=== PATIENT | female | born 1990 | race American Indian/Alaskan Native ===

== ENCOUNTER 2017-12-05 09:46 | Emergency (ER) | payer SELFPAY ==
[2017-12-05 09:55] VITALS: BP 146/98
[2017-12-05 11:48] LABS: Bacteria,Urine 1+ /HPF (Negative); Bilirubin,Urine NEG (Negative); Blood,Urine LG (Negative); Nitrite,Urine NEG (Negative); Urobilinogen,Urine < 2.0 mg/dL (<2.0)
[2017-12-05 11:52] LABS: Color,Urine Red (Yellow)
[2017-12-05 11:59] LABS: HCG Qualitative,Urine Negative (Negative)
--- NOTE | 2017-12-05 12:32 | Emergency Department Report ---
ED Female HPI - General Chief complaint: Urogenital-Female Stated complaint: STD CHECK/ABDOMINAL PAIN Time Seen by Provider: 12/05/17 12:29 Source: patient Mode of arrival: Ambulatory Limitations: No Limitations - History of Present Illness Initial comments: Patient is a 27-year-old female who is presenting with some lower abdominal crampiness. Patient states that she just moved here and her boyfriend started "acting funny". When she stated that her menses was low more painful than normal he admitted that he has Trichomonas and possibly herpes and she has been exposed. Patient has no vaginal discharge and dysuria at this time. Patient states the lower abdominal discomfort is crampy 6 out of 10 and is consistent with her menses - Related Data Allergies Allergy/AdvReac Type Severity Reaction Status Date / Time No Known Allergies Allergy Unverified 12/05/17 09:55 ED Review of Systems ROS: Stated complaint: STD CHECK/ABDOMINAL PAIN Other details as noted in HPI Comment: All other systems reviewed and negative ED Past Medical Hx - Past Medical History Previous Medical History?: Yes Hx Hypertension: Yes Additional medical history: 1 Vaginal dleivery - Surgical History Past Surgical History?: Yes Additional Surgical History: x 2 - Social History Smoking Status: Former Smoker ED Physical Exam - General Limitations: No Limitations General appearance: alert, in no apparent distress - Head Head exam: Present: atraumatic, normocephalic - Eye Eye exam: Present: normal appearance - ENT ENT exam: Present: mucous membranes moist - Neck Neck exam: Present: normal inspection - Respiratory Respiratory exam: Present: normal lung sounds bilaterally. Absent: respiratory distress - Cardiovascular Cardiovascular Exam: Present: regular rate, normal rhythm. Absent: systolic murmur, diastolic murmur, rubs, gallop - GI/Abdominal GI/Abdominal exam: Present: soft, normal bowel sounds - Extremities Exam Extremities exam: Present: normal inspection - Back Exam Back exam: Present: normal inspection - Neurological Exam Neurological exam: Present: alert, oriented X3 - Psychiatric Psychiatric exam: Present: normal affect, normal mood - Skin Skin exam: Present: warm, dry, intact, normal color. Absent: rash ED Course Vital Signs 12/05/17 09:50 Temperature 98.6 F Pulse Rate 84 Respiratory 20 Rate Blood Pressure 146/98 O2 Sat by Pulse 100 Oximetry ED Medical Decision Making - Medical Decision Making Patient was given counseling on ST eyes and will be treated for gonorrhea chlamydia and trichomonas empirically Critical care attestation.: If time is entered above; I have spent that time in minutes in the direct care of this critically ill patient, excluding procedure time. ED Disposition Clinical Impression: STD exposure Disposition: DC-01 TO HOME OR SELFCARE Is pt being admited?: No Does the pt Need Aspirin: No Condition: Stable Instructions: Sexually Transmitted Diseases (ED) Referrals: [facility] [Outside] - 3-5 Days
[2017-12-05] MEDS ORDERED: ROCEPHIN IM ONE (12:33)
[2017-12-05] MEDS ORDERED: ZITHROMAX PO ONE (12:33)
[2017-12-05] MEDS ORDERED: XYLOCAINE 1% MPF 5 mL INFILTRATI ONE (12:33)
[2017-12-05] MEDS ORDERED: FLAGYL PO ONE (12:33)
== END 2017-12-05 12:44 | disposition home or self-care (01) ==
LOC: ED 09:46
DX: R10.30 Lower abdominal pain, unspecified (principal); Z20.2 Contact with and (suspected) exposure to infections with a predominantly sexual mode of transmission; I10 Essential (primary) hypertension; Z87.891 Personal history of nicotine dependence
CPT/HCPCS: 81001; 81025; 96372; 99283; J0696

== ENCOUNTER 2018-06-09 10:30 | Emergency (ER) | payer MEDICAID ==
--- NOTE | 2018-06-09 12:11 | Emergency Department Report ---
Blank Doc - Documentation Documentation: 27 year old female with a past medical history of -induced hypertension presents to the hospital currently possibly 2 months with vaginal bleeding onset this a.m. This is patient's fourth and she has 3 living children without any history of miscarriages or abortions. She went to a clinic one month ago and had a confirmed test with an ultrasound showing an IUP. She did have sexual intercourse last night. This a.m. she woke up with painless vaginal bleeding and has used one pad since onset of symptoms. Patient also presents with elevated BP. She states that she has had elevated blood pressure throughout her previous pregnancies and her youngest child is 8. Patient has her first appointment with [facility] scheduled next week but she cannot recall the name of the group. [place]. Exam: Nasal congestion, patient states she has cold symptoms without fever Abdomen soft nontender Order repeat vital signs are confirmed hypertension. Patient mainly to be initiated on hypertensive medication if still elevated Labs and ultrasound ordered to confirm IUP and verify blood type Mid-level to follow
--- NOTE | 2018-06-09 12:42 | Emergency Department Report ---
ED Female HPI - General Chief complaint: Vaginal Bleeding Stated complaint: VAGINAL BLEEDING Time Seen by Provider: 06/09/18 12:02 Source: patient, family Mode of arrival: Ambulatory Limitations: No Limitations - History of Present Illness Initial comments: 27 year old female with a past medical history of -induced hypertension presents to the hospital currently possibly 2 months with vaginal bleeding onset this a.m. This is patient's fourth and she has 3 living children without any history of miscarriages or abortions. She went to a clinic one month ago and had a confirmed test with an ultrasound showing an IUP. She did have sexual intercourse last night. This a.m. she woke up with painless vaginal bleeding and has used one pad since onset of symptoms. Patient also presents with elevated BP. She states that she has had elevated blood pressure throughout her previous pregnancies and her youngest child is 8. Patient has her first appointment with [facility] scheduled next week but she cannot recall the name of the group. She recently [place] here [place]. Blood pressure is 166/98 at present. She denies any abdominal or back pain. Denies any urinary burning, frequency or urgency. Denies any headache, nausea or vomiting. Denies any fever or chills. Denies any chest pain or shortness of breath. Last menstrual period was 02/13/2018. Complaint: vaginal bleeding -: This morning Severity scale (0 -10): 0 Consistency: intermittent Worsens with: none Are you Now?: Yes (2 months) Last Menstrual Period: 02/13/18 EDC: 11/20/18 Associated Symptoms: vaginal bleeding, other (elevated blood pressure asymptomatic). denies: vaginal discharge, abdominal pain, nausea/vomiting, fever/chills, headaches, loss of appetite, dysuria, hematuria, rash, seizure, shortness of breath, syncope, weakness - Related Data Sexually active: Yes Allergies Allergy/AdvReac Type Severity Reaction Status Date / Time No Known Allergies Allergy Verified 06/09/18 10:52 ED Review of Systems ROS: Stated complaint: VAGINAL BLEEDING Other details as noted in HPI Constitutional: denies: chills, fever Eyes: denies: eye pain, eye discharge, vision change ENT: congestion (nasal congestion and runny nose). denies: ear pain, throat pain Respiratory: denies: cough, shortness of breath, SOB with exertion, SOB at rest , stridor, wheezing Cardiovascular: denies: chest pain, palpitations, dyspnea on exertion, edema, syncope, paroxysmal nocturnal dyspnea Gastrointestinal: denies: abdominal pain, nausea, vomiting, diarrhea, constipation, hematemesis, hematochezia Genitourinary: other (vaginal bleed and). denies: urgency, dysuria, frequency, hematuria, discharge Musculoskeletal: denies: back pain, joint swelling, arthralgia, myalgia Skin: denies: rash Neurological: denies: headache, weakness, numbness, confusion, abnormal gait, vertigo ED Past Medical Hx - Past Medical History Previous Medical History?: Yes Hx Hypertension: Yes ( HTN) Additional medical history: 1 Vaginal dleivery - Surgical History Past Surgical History?: Yes Additional Surgical History: x 2 - Family History Family history: hypertension - Social History Smoking Status: Never Smoker Substance Use Type: None ED Physical Exam - General Limitations: No Limitations General appearance: alert, in no apparent distress - Head Head exam: Present: atraumatic, normocephalic, normal inspection - Eye Eye exam: Present: normal appearance, PERRL, EOMI Pupils: Present: normal accommodation - ENT ENT exam: Present: normal exam, normal orophraynx, mucous membranes moist, TM's normal bilaterally, normal external ear exam - Neck Neck exam: Present: normal inspection, full ROM. Absent: tenderness, lymphadenopathy - Respiratory Respiratory exam: Present: normal lung sounds bilaterally. Absent: respiratory distress, chest wall tenderness - Cardiovascular Cardiovascular Exam: Present: regular rate, normal rhythm, normal heart sounds. Absent: systolic murmur, diastolic murmur - GI/Abdominal GI/Abdominal exam: Present: soft, normal bowel sounds. Absent: distended, tenderness, guarding, rebound, rigid, organomegaly, mass - Extremities Exam Extremities exam: Present: normal inspection, full ROM, normal capillary refill , other (No cce. + 2 pulses in all extremities, no neurovascular compromise). Absent: tenderness, pedal edema, joint swelling, calf tenderness - Back Exam Back exam: Present: normal inspection, full ROM, other (ambulates without any difficulties). Absent: tenderness, CVA tenderness (R), CVA tenderness (L), muscle spasm, paraspinal tenderness, vertebral tenderness, rash noted - Neurological Exam Neurological exam: Present: alert, oriented X3, normal gait - Psychiatric Psychiatric exam: Present: normal affect, normal mood - Skin Skin exam: Present: warm, dry, intact, normal color. Absent: rash ED Course Vital Signs 06/09/18 06/09/18 10:52 14:00 Temperature 98.5 F Pulse Rate 96 H 89 Respiratory 18 18 Rate Blood Pressure 166/98 Blood Pressure 123/72 [Right] O2 Sat by Pulse 100 100 Oximetry - Reevaluation(s) Reevaluation #1: 06/09/18 16:58 Patient is stable no distress. No vaginal bleeding while in the emergency room. Her blood pressure is stabilized. ED Medical Decision Making - Lab Data Result diagrams: 06/09/18 13:03 06/09/18 13:03 Lab Results 06/09/18 06/09/18 06/09/18 Range/Units 13:03 13:03 13:03 WBC 9.5 (4.5-11.0) K/mm3 RBC 4.32 (3.65-5.03) M/mm3 Hgb 12.4 (10.1-14.3) gm/dl Hct 35.4 (30.3-42.9) % MCV 82 (79-97) fl MCH 29 (28-32) pg MCHC 35 H (30-34) % RDW 13.7 (13.2-15.2) % Plt Count 337 (140-440) K/mm3 Lymph % (Auto) 8.2 L (13.4-35.0) % Knott % (Auto) 6.7 (0.0-7.3) % Eos % (Auto) 0.0 (0.0-4.3) % Baso % (Auto) 0.3 (0.0-1.8) % Lymph # 0.8 L (1.2-5.4) K/mm3 Knott # 0.6 (0.0-0.8) K/mm3 Eos # 0.0 (0.0-0.4) K/mm3 Baso # 0.0 (0.0-0.1) K/mm3 Seg Neutrophils % 84.8 H (40.0-70.0) % Seg Neutrophils # 8.1 H (1.8-7.7) K/mm3 Sodium 138 (137-145) mmol/L Potassium 3.5 L (3.6-5.0) mmol/L Chloride 103.9 (98-107) mmol/L Carbon Dioxide 21 L (22-30) mmol/L Anion Gap 17 mmol/L BUN 3 L (7-17) mg/dL Creatinine 0.5 L (0.7-1.2) mg/dL Estimated GFR > 60 ml/min BUN/Creatinine Ratio 6 % Glucose 74 (65-100) mg/dL Calcium 9.0 (8.4-10.2) mg/dL HCG, Quant 17129 H (0-4) mIU/mL Blood Type Antibody Screen 06/09/18 Range/Units 13:03 WBC (4.5-11.0) K/mm3 RBC (3.65-5.03) M/mm3 Hgb (10.1-14.3) gm/dl Hct (30.3-42.9) % MCV (79-97) fl MCH (28-32) pg MCHC (30-34) % RDW (13.2-15.2) % Plt Count (140-440) K/mm3 Lymph % (Auto) (13.4-35.0) % Knott % (Auto) (0.0-7.3) % Eos % (Auto) (0.0-4.3) % Baso % (Auto) (0.0-1.8) % Lymph # (1.2-5.4) K/mm3 Knott # (0.0-0.8) K/mm3 Eos # (0.0-0.4) K/mm3 Baso # (0.0-0.1) K/mm3 Seg Neutrophils % (40.0-70.0) % Seg Neutrophils # (1.8-7.7) K/mm3 Sodium (137-145) mmol/L Potassium (3.6-5.0) mmol/L Chloride (98-107) mmol/L Carbon Dioxide (22-30) mmol/L Anion Gap mmol/L BUN (7-17) mg/dL Creatinine (0.7-1.2) mg/dL Estimated GFR ml/min BUN/Creatinine Ratio % Glucose (65-100) mg/dL Calcium (8.4-10.2) mg/dL HCG, Quant (0-4) mIU/mL Blood Type B POSITIVE Antibody Screen Negative - Radiology Data Radiology results: report reviewed Findings [facility] [address] [place] [address] Ultrasound Report Signed Patient: ARMEN MOLINA MR#: [id number] : 1990 Acct:[id number] Age/Sex: 27 / F ADM Date: 06/09/18 Loc: ED Attending Dr: Ordering Physician: NENA HERRERA MD Date of Service: 06/09/18 Procedure(s): US OB <= 14 weeks fetus Accession Number(s): [id number] cc: NENA HERRERA MD FINAL REPORT PROCEDURE: US OB lt; = 14 WEEKS FETUS TECHNIQUE: Real-time transabdominal sonography of the uterus, placenta, amniotic fluid, adnexa, and fetus was performed with image documentation. Measurements were obtained to determine age/size. M-mode Doppler was used to document heartbeat. CPT 19652 HISTORY: vag bleeding, COMPARISON: No prior studies are available for comparison. FINDINGS: There is a single living intrauterine gestation visualized with a heart rate of 155 beats per minute. Shape of the gestational sac appears normal. Normal amount of amniotic fluid is visualized. Fetus currently too small to assess anatomy. No gross abnormality is seen. Biparietal diameter measurement 2.2 centimeter corresponds to an age of 13 weeks 5 days. Femur length 1.0 centimeter equals 12 weeks 6 days for average sonographic age of 13 weeks 2 days. [address] EDC 12/13/2018 plus or minus 1.5 weeks.. There is a subchorionic hypoechoic density suggesting a subchorionic hemorrhage measuring 3.3 x 1.0 x 1.3 centimeters. Uterus is otherwise unremarkable. Right ovary is visualized and shows no abnormality measuring 3.4 x 2.3 x 2.1 centimeters. Left ovary measures 3.9 x 3.6 x 3.0 centimeter. 2.6 centimeters cystic areas seen in the left ovary suggesting corpus luteum cyst of . IMPRESSION: Single living intrauterine gestation visualized. By measurements the estimated age is 13 week 2 day. [address] the EDC at 12/13/2018 +/-1.5 weeks. Fetus currently too small to assess anatomy. No gross abnormality is visualized. Suggest anatomic screen 18-20 weeks. Subchorionic hypoechoic density seen suggesting subchorionic hemorrhage as described. Gestational sac otherwise unremarkable. Follow-up exam suggested to ensure resolution. Cystic change visualize left ovary suggesting corpus luteum cyst of . Transcribed By: DFRaudel Dictated By: LUAN HECTOR MD Electronically Authenticated By: LUAN HECTOR MD Signed Date/Time: 06/09/181519 DD/ 19 TD/TT: 06/09/181519 - Medical Decision Making This is a 27-year-old female here reports that she is 2 months and she is having vaginal bleeding after having sexual activity last night. Vaginal bleeding is not related to any abdominal back pain. Patient's been having any vaginal discharge or urinary symptoms. Patient has a history of high blood pressure and has -induced hypertension. Blood pressure was retaken after coming back to ED room and it is stabilized. Patient was seen and examined by myself and her physical exam is normal. Threatened miscarriage due to vaginal bleeding-ultrasound was dictated by radiologist and report reviewed by myself. And shows IUP at 13 weeks and 2 days. heartbeat is 156 bpm. Positive subchorionic bleed-B+ blood type Positive left corpus luteum cyst-Will refer to [facility] Blood pressure is stabilized and will encourage patient to monitor blood pressure throughout and follow-up with her [facility] to prevent preeclampsia or eclampsia. I discuss CBC and chemistry lipase along with hormone and ultrasound results. She voiced understanding. I also discussed with her that she needs to monitor blood pressure and keep a log of it and take to her [facility] visit with her which she has coming up soon. I discussed the patient is to continue vitamin and to rest for a few days. I also told her that if he returns to return to the emergency room CARLA. She voiced understanding and discharged home in stable condition to follow up with her [facility] in 2-3 days. - Differential Diagnosis complete , threatened , ectopic ,hemorrhagic UTI Critical care attestation.: If time is entered above; I have spent that time in minutes in the direct care of this critically ill patient, excluding procedure time. ED Disposition Clinical Impression: Threatened miscarriage in early , Corpus luteum cyst of left ovary, Vaginal bleeding before 22 weeks gestation Subchorionic bleed Qualifiers: Fetus number: single or unspecified fetus Trimester: second trimester Qualified Code(s): O41.8X20 - Other specified disorders of amniotic fluid and membranes, second trimester, not applicable or unspecified; O46.8X2 - Other antepartum hemorrhage, second trimester Disposition: DC-01 TO HOME OR SELFCARE Is pt being admited?: No Does the pt Need Aspirin: No Condition: Stable Instructions: Pre-eclampsia and Eclampsia (ED), Ovarian Cyst (ED), Threatened Miscarriage (ED) Additional Instructions: Please follow up with [facility] in 2-3 days and if you do not have [facility] follow- up with Dr. Javier Molina at [facility]. If you bleeding returns, return to the emergency room. Continue to take vitamins See discharge instructions on eclampsia and preeclampsia this caused by hypertension. He is keep a log a few blood pressure and take to your [facility] visits with you. Referrals: you are, [facility] in 2-3 days [Other] - 2-3 Days JAVIER MOLINA MD [Staff Physician] - 2-3 Days Forms: Work/School Release Form(ED)
[2018-06-09 13:21] LABS: Basophils % (Auto) 0.3 % (0.0-1.8); Hematocrit 35.4 % (30.3-42.9); Hemoglobin 12.4 gm/dl (10.1-14.3); Lymphocytes # (Auto) 0.8 K/mm3 (1.2-5.4); Lymphocytes % (Auto) 8.2 % (13.4-35.0); Mean Corpuscular HGB Conc 35 % (30-34); Mean Corpuscular Hemoglobin 29 pg (28-32); Mean Corpuscular Volume 82 fl (79-97); Monocytes # (Auto) 0.6 K/mm3 (0.0-0.8); Monocytes % (Auto) 6.7 % (0.0-7.3); Platelet Count 337 K/mm3 (140-440); Red Blood Count 4.32 M/mm3 (3.65-5.03); Red Cell Distribution Width 13.7 % (13.2-15.2)
[2018-06-09 13:35] LABS: BUN/Creatinine Ratio 6; Blood Urea Nitrogen 3 mg/dL (7-17); Hemolysis Index 7
[2018-06-09 14:01] VITALS: BP 123/72
--- NOTE | 2018-06-09 15:20 | Ultrasound Report ---
FINAL REPORT PROCEDURE: US OB < = 14 WEEKS FETUS TECHNIQUE: Real-time transabdominal sonography of the uterus, placenta, amniotic fluid, adnexa, and fetus was performed with image documentation. Measurements were obtained to determine age/size. M-mode Doppler was used to document heartbeat. CPT 32497 HISTORY: vag bleeding, COMPARISON: No prior studies are available for comparison. FINDINGS: There is a single living intrauterine gestation visualized with a heart rate of 155 beats per minute. Shape of the gestational sac appears normal. Normal amount of amniotic fluid is visualized. Fetus currently too small to assess anatomy. No gross abnormality is seen. Biparietal diameter measurement 2.2 centimeter corresponds to an age of 13 weeks 5 days. Femur length 1.0 centimeter equals 12 weeks 6 days for average sonographic age of 13 weeks 2 days[address] EDC 12/13/2018 plus or minus 1.5 weeks.. There is a subchorionic hypoechoic density suggesting a subchorionic hemorrhage measuring 3.3 x 1.0 x 1.3 centimeters. Uterus is otherwise unremarkable. Right ovary is visualized and shows no abnormality measuring 3.4 x 2.3 x 2.1 centimeters. Left ovary measures 3.9 x 3.6 x 3.0 centimeter. 2.6 centimeters cystic areas seen in the left ovary suggesting corpus luteum cyst of . IMPRESSION: Single living intrauterine gestation visualized. By measurements the estimated age is 13 week 2 day. This places the EDC at 12/13/2018 +/-1.5 weeks. Fetus currently too small to assess anatomy. No gross abnormality is visualized. Suggest anatomic screen 18-20 weeks. Subchorionic hypoechoic density seen suggesting subchorionic hemorrhage as described. Gestational sac otherwise unremarkable. Follow-up exam suggested to ensure resolution. Cystic change visualize left ovary suggesting corpus luteum cyst of .
[2018-06-09] MEDS ORDERED: K-DUR PO ONE (17:02)
== END 2018-06-09 17:23 | disposition home or self-care (01) ==
LOC: ED 10:30
DX: O20.0 Threatened abortion (principal); O34.82 Maternal care for other abnormalities of pelvic organs, second trimester; O41.8X20 Other specified disorders of amniotic fluid and membranes, second trimester, not applicable or unspecified; O46.8X2 Other antepartum hemorrhage, second trimester; N83.12 Corpus luteum cyst of left ovary; I10 Essential (primary) hypertension; Z3A.13 13 weeks gestation of pregnancy
CPT/HCPCS: 36415; 76801; 80048; 84702; 85025; 86850; 86900; 86901

== ENCOUNTER 2018-06-11 13:41 | Observation (INO) | payer MEDICAID ==
--- NOTE | 2018-06-11 14:01 | Emergency Department Report ---
ED Female HPI - General Chief complaint: Urogenital-Female Stated complaint: INFECTION Time Seen by Provider: 06/11/18 13:54 Source: patient Mode of arrival: Stretcher Limitations: No Limitations - History of Present Illness Initial comments: Patient complains of sudden onset of vaginal bleeding restarted this afternoon. Patient to start 2 weeks . Patient was seen in the emergency room 2 days ago for the same problem. MD Complaint: vaginal bleeding -: Sudden Location: perineum Severity: severe Severity scale (0 -10): 4 Quality: cramping, sharp Consistency: intermittent Improves with: none Worsens with: none Are you Now?: Yes Associated Symptoms: vaginal bleeding - Related Data Sexually active: Yes Allergies Allergy/AdvReac Type Severity Reaction Status Date / Time No Known Allergies Allergy Verified 06/09/18 10:52 ED Review of Systems ROS: Stated complaint: INFECTION Other details as noted in HPI Comment: All other systems reviewed and negative Constitutional: denies: chills, fever Eyes: denies: eye pain ENT: denies: ear pain Respiratory: denies: cough, shortness of breath Cardiovascular: denies: chest pain, palpitations, dyspnea on exertion Endocrine: no symptoms reported Gastrointestinal: denies: abdominal pain, nausea, vomiting Genitourinary: denies: discharge Musculoskeletal: denies: back pain, joint swelling Skin: denies: rash, lesions Neurological: denies: headache, weakness Psychiatric: denies: anxiety, depression Hematological/Lymphatic: denies: easy bleeding, easy bruising ED Past Medical Hx - Past Medical History Hx Hypertension: Yes ( HTN) Additional medical history: 1 Vaginal dleivery - Surgical History Additional Surgical History: x 2 - Social History Smoking Status: Never Smoker Substance Use Type: None ED Physical Exam - General Limitations: No Limitations General appearance: alert, in no apparent distress - Head Head exam: Present: atraumatic, normocephalic, normal inspection - Eye Eye exam: Present: normal appearance, PERRL, EOMI Pupils: Present: normal accommodation - ENT ENT exam: Present: normal exam, normal orophraynx, mucous membranes moist - Neck Neck exam: Present: normal inspection, full ROM. Absent: tenderness - Respiratory Respiratory exam: Present: normal lung sounds bilaterally. Absent: respiratory distress, wheezes, rales, rhonchi, stridor - Cardiovascular Cardiovascular Exam: Present: regular rate, normal rhythm, normal heart sounds - GI/Abdominal GI/Abdominal exam: Present: soft, normal bowel sounds. Absent: distended, tenderness, guarding, rebound, rigid - Rectal Rectal exam: Present: deferred - External exam: Present: normal external exam Speculum exam: Present: vaginal bleeding. Absent: foreign body, tissue, laceration Bi-manual exam: Present: other (Bimanual not done. [place]per[place] was Ms. Christopher RN. ) - Extremities Exam Extremities exam: Present: normal inspection, full ROM, normal capillary refill. Absent: tenderness - Back Exam Back exam: Present: normal inspection, full ROM - Neurological Exam Neurological exam: Present: alert, oriented X3, CN II-XII intact - Psychiatric Psychiatric exam: Present: normal affect, normal mood - Skin Skin exam: Present: warm, dry, intact, normal color. Absent: rash ED Course Vital Signs 06/11/18 18:44 Temperature 99.7 F H Pulse Rate 83 Respiratory 16 Rate Blood Pressure 126/83 [Right] O2 Sat by Pulse 100 Oximetry - Reevaluation(s) Reevaluation #1: 06/11/18 19:43 I consulted the [facility] doctor on-call Dr Av Molina. He came to the ED and evaluated patient. He will admit patient for observation. 06/11/18 20:44 06/11/18 20:55 ED Medical Decision Making - Lab Data Result diagrams: 06/11/18 14:28 06/11/18 14:28 - Radiology Data Radiology results: report reviewed, image reviewed - Medical Decision Making Threatened miscarriage. Critical care attestation.: If time is entered above; I have spent that time in minutes in the direct care of this critically ill patient, excluding procedure time. ED Disposition Clinical Impression: Threatened miscarriage in early , Vaginal bleeding before 22 weeks gestation, Subchorionic bleed, Placenta previa antepartum in first trimester Disposition: 09 OP ADMIT IP TO THIS HOSP Is pt being admited?: Yes Does the pt Need Aspirin: No Condition: Stable Referrals: PRIMARY CARE, [Primary Care Provider] - 3-5 Days Time of Disposition: 20:56
[2018-06-11] MEDS ORDERED: NACL 0.9% 1000 ML 1,000 ML IV ONE (14:11)
[2018-06-11 14:56] LABS: Basophils % (Auto) 0.4 % (0.0-1.8); Eosinophils % (Auto) 0.1 % (0.0-4.3); Hemoglobin 11.5 gm/dl (10.1-14.3); Lymphocytes # (Auto) 0.9 K/mm3 (1.2-5.4); Lymphocytes % (Auto) 11.7 % (13.4-35.0); Mean Corpuscular HGB Conc 35 % (30-34); Mean Corpuscular Hemoglobin 29 pg (28-32); Mean Corpuscular Volume 83 fl (79-97); Monocytes # (Auto) 0.6 K/mm3 (0.0-0.8); Monocytes % (Auto) 8.1 % (0.0-7.3); Platelet Count 322 K/mm3 (140-440); Red Blood Count 3.95 M/mm3 (3.65-5.03); Red Cell Distribution Width 13.5 % (13.2-15.2)
[2018-06-11 15:27] LABS: BUN/Creatinine Ratio 8; Blood Urea Nitrogen 4 mg/dL (7-17); Calcium 8.5 mg/dL (8.4-10.2); Hemolysis Index 140; INR 1.04 (0.87-1.13); Partial Thromboplastin Time 26.4 Sec. (24.2-36.6)
[2018-06-11 17:18] LABS: Bilirubin,Urine NEG (Negative); Blood,Urine LG (Negative); Color,Urine Yellow (Yellow); Urobilinogen,Urine < 2.0 mg/dL (<2.0)
[2018-06-11 17:24] LABS: RBC,Urine > 182.0 /HPF (0.0-6.0)
[2018-06-11] MEDS ORDERED: MORPHINE ONE (18:02)
[2018-06-11] MEDS ORDERED: MORPHINE IV ONE (18:05)
--- NOTE | 2018-06-11 20:29 | Ultrasound Report ---
FINAL REPORT EXAM: US OB TRANSVAGINAL HISTORY: Vaginal bleeding excessively TECHNIQUE: Doubt limited obstetrical ultrasound PRIORS: Ultrasound pelvis 06/09/2018 FINDINGS: LMP: 02/22/2018 clinical Age: 15 W 4 D US Age (average) = 14 W 0 D LMP EDC 11/29/2018 US EDC 12/10/2018 CI 85.7 (range 74 to 83} HC/AC 1.3 (Range 1.05 To 1.39) FL/BPD 45 FL/HC 12.2 (range 13.5 to 18.9) FL/AC 15.9 BPD 2.5 cm corresponding to estimated age 14 weeks 2 days HC 9.5 cm corresponding to estimated age 14 weeks 2 days AC 7.3 cm corresponding to estimated age 13 weeks 6 days FL 1.2 cm corresponding to estimated age 13 weeks 3 days Presentation: breech Activity: Monitored Placental location: Posterior but low lying. On 1 image, there may be placenta previa versus low lying placenta which can be further evaluated with follow-up imaging Placental grade: 1 Cardiac motion: 180 BPM using M-mode doppler Heart (4 CH) : Present Amniotic Fluid Volume: Adequate Cervical Length: 3.5 cm IMPRESSION: Single intrauterine viable with an approximate age of 14 weeks 0 days. There is a possible placenta previa or low lying placenta which should be confirmed with further follow-up ultrasound imaging
--- NOTE | 2018-06-11 20:33 | Ultrasound Report ---
FINAL REPORT EXAM: US OB > = 14 WEEKS FETUS HISTORY: Vaginal bleeding excessively TECHNIQUE: Doubt limited obstetrical ultrasound PRIORS: Ultrasound pelvis 06/09/2018 FINDINGS: LMP: 02/22/2018 clinical Age: 15 W 4 D US Age (average) = 14 W 0 D LMP EDC 11/29/2018 US EDC 12/10/2018 CI 85.7 (range 74 to 83} HC/AC 1.3 (Range 1.05 To 1.39) FL/BPD 45 FL/HC 12.2 (range 13.5 to 18.9) FL/AC 15.9 BPD 2.5 cm corresponding to estimated age 14 weeks 2 days HC 9.5 cm corresponding to estimated age 14 weeks 2 days AC 7.3 cm corresponding to estimated age 13 weeks 6 days FL 1.2 cm corresponding to estimated age 13 weeks 3 days Presentation: breech Activity: Monitored Placental location: Posterior but low lying. On 1 image, there may be placenta previa versus low lying placenta which can be further evaluated with follow-up imaging. There also small hypoechoic avascular focus along the posterior aspect of the placenta in the fundal region measuring 4.1 x 0.9 x 0.8 cm. This may represent a small subchorionic hemorrhage. I cannot entirely exclude early abruption. Placental grade: 1 Cardiac motion: 180 BPM using M-mode doppler Heart (4 CH) : Present Amniotic Fluid Volume: Adequate Cervical Length: 3.5 cm IMPRESSION: 1. single intrauterine viable with an approximate age of 14 weeks 0 days. 2. there is a possible placenta previa or low lying placenta which should be confirmed with further follow-up ultrasound imaging 3. Small hypoechoic area along the fundal margin of the placenta which may represent a small subchorionic hemorrhage or an area of abruption given the location close to the margin.
--- NOTE | 2018-06-11 20:57 | Short Stay Summary ---
Short Stay Documentation Date of service: 06/11/18 Narrative H&P: Pt is a 27yo BF LMP 02/24/18; EGA 14 weeks who presented to [facility] ER complaining of vaginal bleeding and cramping. pelvic u/s showed an IUP @ 14 weeks +FHT's and placenta previa. She subsequently had a complete miscarriage in the ER and was admitted for Observation. - History Principal diagnosis: IUP @ 14 weeks; Placenta previa; Bleeding H&P: obtained from office Past Medical History: No medical history Past Surgical History: Social history: no significant social history, single - Allergies and Medications Current Medications: Allergies No Known Allergies Allergy (Verified 06/09/18 10:52) - Physical exam General appearance: mild distress Integumentary: no rash Lungs: Clear to auscultation Breasts: deferred Heart: Regular rate Gastrointestinal: normal Female Genitourinary: other (vaginal bleeding) Rectal Exam: deferred Extremities: no ischemia Neurological: Normal gait - Hospital course Hospital course: Unremarkable. - Disposition Condition at discharge: Stable Disposition: DC-01 TO HOME OR SELFCARE Short Stay Discharge Plan Activity: no restrictions Diet: regular Follow up with: PRIMARY CAREMD [Primary Care Provider] - 3-5 Days CHELI ALFONSO MD [Staff Physician] - 14 Days Prescriptions: Ibuprofen [Motrin 600 MG tab] 600 mg PO Q6H #30 tablet Methylergonovine [Methergine] 0.2 mg PO Q8HR #6 tablet Vit-Fe Fumar-FA [ Vitamin] 1 each PO QDAY #30 tablet
[2018-06-11] MEDS ORDERED: COLACE PO PRN (20:58)
[2018-06-11] MEDS ORDERED: TYLENOL PO PRN ×2 (20:58→22:08)
[2018-06-11] MEDS ORDERED: AMBIEN PO PRN (20:58)
[2018-06-11] MEDS ORDERED: LACTATED RINGERS 1,000 ML IV SCH (21:00)
[2018-06-11] MEDS ORDERED: PERCOCET 5/325 ONE (21:54)
[2018-06-11] MEDS: PERCOCET 5/325 PO PRN (21:57)
[2018-06-11] MEDS ORDERED: ZOFRAN IV PRN (22:08)
[2018-06-11] MEDS ORDERED: PHENERGAN PR PRN (22:08)
[2018-06-11] MEDS ORDERED: DULCOLAX PR PRN (22:08)
[2018-06-11] MEDS ORDERED: TUCKS PAD TP PRN (22:08)
[2018-06-11] MEDS ORDERED: BENADRYL PO PRN (22:08)
[2018-06-11] MEDS ORDERED: PHENERGAN PO PRN (22:08)
[2018-06-11] MEDS ORDERED: LANSINOH TP PRN (22:08)
[2018-06-11] MEDS ORDERED: MILK OF MAGNESIA PO PRN (22:08)
[2018-06-11] MEDS ORDERED: METHERGINE ONE (22:49)
[2018-06-11] MEDS ORDERED: PITOCin/NS 20 UNIT/1000ML DRIP 20 UNITS/1,000 ML BAG IV SCH (23:00)
[2018-06-11] MEDS ORDERED: METHERGINE PO SCH (23:00)
[2018-06-11] MEDS ORDERED: SODIUM CHLORIDE FLUSH SYRINGE 10 ML IV NR (23:00)
[2018-06-12] MEDS ORDERED: MOTRIN PO SCH
[2018-06-12] MEDS: PERCOCET 5/325 PO PRN (03:13)
[2018-06-12 08:53] LABS: Basophils # (Auto) 0.1 K/mm3 (0.0-0.1); Basophils % (Auto) 0.7 % (0.0-1.8); Eosinophils % (Auto) 0.4 % (0.0-4.3); Hematocrit 33.4 % (30.3-42.9); Hemoglobin 11.7 gm/dl (10.1-14.3); Lymphocytes # (Auto) 1.4 K/mm3 (1.2-5.4); Lymphocytes % (Auto) 18.3 % (13.4-35.0); Mean Corpuscular HGB Conc 35 % (30-34); Mean Corpuscular Hemoglobin 29 pg (28-32); Mean Corpuscular Volume 84 fl (79-97); Monocytes # (Auto) 0.6 K/mm3 (0.0-0.8); Monocytes % (Auto) 8.2 % (0.0-7.3); Platelet Count 294 K/mm3 (140-440); Red Blood Count 3.99 M/mm3 (3.65-5.03); Red Cell Distribution Width 13.4 % (13.2-15.2)
[2018-06-12] MEDS ORDERED: PRENATAL VITAMIN PO SCH (10:00)
[2018-06-12 10:29] LABS: Hematocrit 33.9 % (30.3-42.9); Hemoglobin 11.6 gm/dl (10.1-14.3)
[2018-06-12 10:31] VITALS: BP 137/86
== END 2018-06-12 15:15 | disposition home or self-care (01) ==
LOC: ED 13:41 → OB 20:58
PROVIDERS: ADMIT Obstetrics & Gynecology; ATTEND Obstetrics & Gynecology
DX: O44.12 Complete placenta previa with hemorrhage, second trimester (principal); O20.0 Threatened abortion; O34.219 Maternal care for unspecified type scar from previous cesarean delivery; Z3A.14 14 weeks gestation of pregnancy
CPT/HCPCS: 36415; 76805; 76817; 80048; 81001; 84702; 85014; 85018; 85025; 85610; 85730; 86850; 86900; 86901; 87210; 87591; 88305; 96365; 96366; 96375; 99285; G0378; J2270; J2590; J7030

== ENCOUNTER 2018-12-14 00:05 | Emergency (ER) | payer MEDICAID ==
[2018-12-14 00:39] VITALS: BP 156/100
[2018-12-14] MEDS ORDERED: XYLOCAINE 1%/ EPI 1:100,000 INFILTRATI ONE (03:17)
[2018-12-14] MEDS ORDERED: XYLOCAINE 1% 20 mL INFILTRATI ONE (03:30)
[2018-12-14] MEDS ORDERED: NORCO 5/325 PO STA (03:47)
--- NOTE | 2018-12-14 04:02 | Emergency Department Report ---
ED General Adult HPI - General Chief complaint: Skin/Abscess/Foreign Body Stated complaint: BUMP IN BUTT Time Seen by Provider: 12/14/18 03:47 Source: patient Mode of arrival: Ambulatory Limitations: No Limitations - History of Present Illness Initial comments: 28-year-old female presents emergency department complaining of a four-day history of pain to the buttock region, worse with bowel movements and palpation. Post no diarrhea or constipation reports no fever, chills, sweats, chest pain, palpitations. States she recently had a upper pelvic evaluation, which yielded no STDs. Vaginal discharge. -: hour(s) (4) Location: genitals Radiation: non-radiation Severity scale (0 -10): 10 Consistency: constant Worsens with: none Associated Symptoms: denies: chest pain, cough, diaphoresis, malaise, nausea/vomiting, syncope - Related Data Previous Rx's Medication Instructions Recorded Last Taken Type Methylergonovine [Methergine] 0.2 mg PO Q8HR #6 tablet 06/12/18 Unknown Rx Vit-Fe Fumar-FA [ 1 each PO QDAY #30 tablet 06/12/18 Unknown Rx Vitamin] Butalb/Acetaminophen/Caffeine 1 cap PO Q8HR PRN #30 cap 08/10/18 Unknown Rx [Fioricet 50-300-40 mg CAP] Ibuprofen [Motrin 600 MG tab] 600 mg PO Q6H #30 tablet 08/10/18 Unknown Rx Chlorhexidine Gluconate [Hibiclens] 10 ml TP BID #240 liquid 12/14/18 Unknown Rx Lidocaine Viscous 2% 5 ml MM Q3H PRN #120 udc 12/14/18 Unknown Rx Sulfamethoxazole/Trimethoprim 1 each PO BID #20 tablet 12/14/18 Unknown Rx [Bactrim Ds] Allergies Allergy/AdvReac Type Severity Reaction Status Date / Time No Known Allergies Allergy Verified 08/10/18 08:06 ED Review of Systems ROS: Stated complaint: BUMP IN BUTT Other details as noted in HPI Constitutional: denies: chills, fever Eyes: denies: eye pain, eye discharge, vision change ENT: denies: ear pain, throat pain Respiratory: denies: cough, shortness of breath, wheezing Cardiovascular: denies: chest pain, palpitations Endocrine: no symptoms reported Gastrointestinal: denies: abdominal pain, nausea, diarrhea Genitourinary: denies: urgency, dysuria, discharge Musculoskeletal: denies: back pain, joint swelling, arthralgia Skin: denies: rash, lesions Neurological: denies: headache, weakness, paresthesias Psychiatric: denies: anxiety, depression Hematological/Lymphatic: denies: easy bleeding, easy bruising ED Past Medical Hx - Past Medical History Hx Hypertension: Yes ( HTN) Hx Congestive Heart Failure: No Hx Diabetes: No Hx Asthma: No Hx COPD: No Additional medical history: MISCARRIAGE - Surgical History Additional Surgical History: x 2 - Social History Smoking Status: Never Smoker Substance Use Type: None - Medications Home Medications: Home Medications Medication Instructions Recorded Confirmed Last Taken Type Methylergonovine [Methergine] 0.2 mg PO Q8HR #6 tablet 06/12/18 Unknown Rx Vit-Fe Fumar-FA [ 1 each PO QDAY #30 tablet 06/12/18 Unknown Rx Vitamin] Butalb/Acetaminophen/Caffeine 1 cap PO Q8HR PRN #30 cap 08/10/18 Unknown Rx [Fioricet 50-300-40 mg CAP] Ibuprofen [Motrin 600 MG tab] 600 mg PO Q6H #30 tablet 08/10/18 Unknown Rx Chlorhexidine Gluconate [Hibiclens] 10 ml TP BID #240 liquid 12/14/18 Unknown Rx Lidocaine Viscous 2% 5 ml MM Q3H PRN #120 udc 12/14/18 Unknown Rx Sulfamethoxazole/Trimethoprim 1 each PO BID #20 tablet 12/14/18 Unknown Rx [Bactrim Ds] ED Physical Exam - General Limitations: No Limitations General appearance: alert, in no apparent distress - Head Head exam: Present: atraumatic, normocephalic - Eye Eye exam: Present: normal appearance, PERRL, EOMI - ENT ENT exam: Present: normal exam, mucous membranes moist - Neck Neck exam: Present: normal inspection, full ROM. Absent: tenderness, lymphadenopathy - Respiratory Respiratory exam: Present: normal lung sounds bilaterally. Absent: respiratory distress, rales, rhonchi - Cardiovascular Cardiovascular Exam: Present: regular rate, normal rhythm. Absent: systolic murmur, diastolic murmur, rubs, gallop - GI/Abdominal GI/Abdominal exam: Present: soft, normal bowel sounds - Rectal Rectal exam: Present: mass (skin tag-like mass to the perineum inflamed with some mild swelling. On the mass. There are 2 ulcerative lesions as well), tenderness - Extremities Exam Extremities exam: Present: normal inspection - Back Exam Back exam: Present: normal inspection - Neurological Exam Neurological exam: Present: alert, oriented X3, CN II-XII intact, normal gait - Psychiatric Psychiatric exam: Present: normal affect, normal mood. Absent: depressed, agitated, anxious, flat affect, manic, homicidal ideation, suicidal ideation - Skin Skin exam: Present: warm, dry, intact, normal color, erythema. Absent: rash, urticaria, petechiae, pallor, abrasion ED Course Vital Signs 12/14/18 12/14/18 00:10 00:38 Temperature 98.5 F Pulse Rate 84 Respiratory 18 Rate Blood Pressure 165/118 Blood Pressure 156/100 [Left] O2 Sat by Pulse 99 Oximetry ED Medical Decision Making - Differential Diagnosis early hemorrhoid, early eighth typical abscess, herpes Critical care attestation.: If time is entered above; I have spent that time in minutes in the direct care of this critically ill patient, excluding procedure time. ED Disposition Clinical Impression: Ulcerative proctitis, nonspecific Disposition: DC-01 TO HOME OR SELFCARE Is pt being admited?: No Does the pt Need Aspirin: No Condition: Stable Instructions: Wound Infection (ED), Acute Wound Care (ED) Referrals: MIREILLE KIRK MD [Primary Care Provider] - 2-3 Days (wound check in 2-3 days )
== END 2018-12-14 04:20 | disposition home or self-care (01) ==
LOC: ED 00:05
DX: K51.20 Ulcerative (chronic) proctitis without complications (principal)
CPT/HCPCS: 99282

== ENCOUNTER 2019-03-26 21:22 | Emergency (ER) | payer MEDICAID ==
[2019-03-27] MEDS ORDERED: REGLAN IV ONE (01:39)
[2019-03-27] MEDS ORDERED: TORADOL IV ONE (01:39)
[2019-03-27] MEDS ORDERED: BENADRYL IV ONE (01:40)
[2019-03-27 03:02] LABS: Basophils % (Auto) 0.7 % (0.0-1.8); Eosinophils % (Auto) 0.1 % (0.0-4.3); Hematocrit 38.2 % (30.3-42.9); Hemoglobin 13.3 gm/dl (10.1-14.3); Lymphocytes # (Auto) 1.3 K/mm3 (1.2-5.4); Lymphocytes % (Auto) 17.7 % (13.4-35.0); Mean Corpuscular HGB Conc 35 % (30-34); Mean Corpuscular Volume 83 fl (79-97); Monocytes % (Auto) 7.9 % (0.0-7.3); Platelet Count 337 K/mm3 (140-440); Red Blood Count 4.61 M/mm3 (3.65-5.03)
[2019-03-27 03:03] LABS: Basophils # (Auto) 0.1 K/mm3 (0.0-0.1); Monocytes # (Auto) 0.6 K/mm3 (0.0-0.8)
[2019-03-27 03:08] LABS: Alanine Aminotransferase 6 units/L (7-56); Albumin 3.9 g/dL (3.9-5); BUN/Creatinine Ratio 13; Blood Urea Nitrogen 10 mg/dL (7-17); Calcium 9.3 mg/dL (8.4-10.2)
[2019-03-27 03:09] LABS: Hemolysis Index 15
[2019-03-27] MEDS ORDERED: ZOFRAN ODT PO ONE (03:13)
[2019-03-27] MEDS ORDERED: FIORICET PO ONE (03:13)
[2019-03-27 03:26] VITALS: BP 144/92
--- NOTE | 2019-03-27 04:36 | Emergency Department Report ---
ED Headache HPI - General Chief Complaint: Headache Stated Complaint: Nausea, vomiting and headache Time Seen by Provider: 03/27/19 01:25 Source: patient Exam Limitations: no limitations - History of Present Illness Initial Comments: Patient is a A0 28-year-old -[place] female with no past medical history presents to the ED with complaint of acute onset persistent headache, nausea and vomiting intermittently for the last 3 days. Patient states that the nausea and vomiting is intermittent and headache gets worse with nausea and vomiting. Patient states that she thought that her blood pressure was high, and wanted her blood pressure rechecked and to a certain the cause of her headache. Patient denies abdominal pain, dizziness, fever, chills, diarrhea, sore throat, nasal and sinus congestion, chest pain, shortness of breath, dysuria, urinary frequency and urgency or change in vision and dizziness. Patient unsure of her last menstrual cycle when I asked. Timing/Duration: waxing and waning, other (3 days) Quality: severe, constant, sharp Head Injury Location: temporal Recent Head Trauma: no recent headache/trauma, frequent headaches Associated Symptoms: nausea/vomiting. denies: confusion, fatigue, facial pain, fever/chills, flushing, loss of consciousness, nasal congestion, nasal drainage, numbness in legs/feet, seizures, sinus infection, stiff neck, weakness, other Allergies/Adverse Reactions: Allergies No Known Allergies Allergy (Verified 08/10/18 08:06) Home Medications: Ambulatory Orders Methylergonovine [Methergine] 0.2 mg PO Q8HR #6 tablet 06/12/18 Vit-Fe Fumar-FA [ Vitamin] 1 each PO QDAY #30 tablet 06/12/18 Butalb/Acetaminophen/Caffeine [Fioricet 50-300-40 mg CAP] 1 cap PO Q8HR PRN #30 cap 08/10/18 Ibuprofen [Motrin 600 MG tab] 600 mg PO Q6H #30 tablet 08/10/18 Chlorhexidine Gluconate [Hibiclens] 10 ml TP BID #240 liquid 12/14/18 Lidocaine Viscous 2% 5 ml MM Q3H PRN #120 udc 12/14/18 Sulfamethoxazole/Trimethoprim [Bactrim Ds] 1 each PO BID #20 tablet 12/14/18 Promethazine [Phenergan] 25 mg PO Q6HR PRN #30 tab 03/27/19 ED Review of Systems ROS: Stated complaint: Other details as noted in HPI Comment: All other systems reviewed and negative Constitutional: denies: chills, fever Eyes: denies: eye pain, eye discharge, vision change ENT: denies: ear pain, throat pain Respiratory: denies: cough, shortness of breath, wheezing Cardiovascular: denies: chest pain, palpitations Endocrine: no symptoms reported Gastrointestinal: nausea, vomiting. denies: diarrhea, constipation, melena, hematochezia Genitourinary: denies: urgency, dysuria, discharge Musculoskeletal: denies: back pain, joint swelling, arthralgia Skin: denies: rash, lesions Neurological: headache. denies: weakness, paresthesias Psychiatric: denies: anxiety, depression Hematological/Lymphatic: denies: easy bleeding, easy bruising ED Past Medical Hx - Past Medical History Hx Hypertension: Yes ( HTN) Hx Congestive Heart Failure: No Hx Diabetes: No Hx Asthma: No Hx COPD: No Additional medical history: MISCARRIAGE - Surgical History Additional Surgical History: x 2 - Social History Smoking Status: Never Smoker Substance Use Type: None - Medications Home Medications: Home Medications Medication Instructions Recorded Confirmed Last Taken Type Methylergonovine [Methergine] 0.2 mg PO Q8HR #6 tablet 06/12/18 Unknown Rx Vit-Fe Fumar-FA [ 1 each PO QDAY #30 tablet 06/12/18 Unknown Rx Vitamin] Butalb/Acetaminophen/Caffeine 1 cap PO Q8HR PRN #30 cap 08/10/18 Unknown Rx [Fioricet 50-300-40 mg CAP] Ibuprofen [Motrin 600 MG tab] 600 mg PO Q6H #30 tablet 08/10/18 Unknown Rx Chlorhexidine Gluconate [Hibiclens] 10 ml TP BID #240 liquid 12/14/18 Unknown Rx Lidocaine Viscous 2% 5 ml MM Q3H PRN #120 udc 12/14/18 Unknown Rx Sulfamethoxazole/Trimethoprim 1 each PO BID #20 tablet 12/14/18 Unknown Rx [Bactrim Ds] Promethazine [Phenergan] 25 mg PO Q6HR PRN #30 tab 03/27/19 Unknown Rx ED Physical Exam - General General appearance: alert, in no apparent distress - Head Head exam: Present: atraumatic, normocephalic, normal inspection - Eye Eye exam: Present: normal appearance, PERRL, EOMI. Absent: scleral icterus, conjunctival injection, nystagmus - ENT ENT exam: Present: normal exam, normal orophraynx, mucous membranes moist, TM's normal bilaterally, normal external ear exam - Neck Neck exam: Present: normal inspection, full ROM. Absent: tenderness - Respiratory Respiratory exam: Present: normal lung sounds bilaterally. Absent: respiratory distress, wheezes, rales, chest wall tenderness, accessory muscle use, decreased breath sounds, prolonged expiratory - Cardiovascular Cardiovascular Exam: Present: regular rate, normal rhythm, normal heart sounds. Absent: systolic murmur, diastolic murmur, rubs, gallop - GI/Abdominal GI/Abdominal exam: Present: soft, normal bowel sounds. Absent: distended, tenderness, guarding, rebound, rigid, hyperactive bowel sounds, hypoactive bowel sounds, organomegaly - Rectal Rectal exam: Present: deferred - Extremities Exam Extremities exam: Present: normal inspection, full ROM, normal capillary refill - Back Exam Back exam: Present: normal inspection, full ROM. Absent: tenderness, CVA tenderness (R), CVA tenderness (L), muscle spasm, paraspinal tenderness, vertebral tenderness - Neurological Exam Neurological exam: Present: alert, oriented X3, CN II-XII intact, normal gait, reflexes normal - Psychiatric Psychiatric exam: Present: normal affect, normal mood - Skin Skin exam: Present: warm, dry, intact, normal color. Absent: rash ED Course Vital Signs 03/27/19 03:26 Pulse Rate 81 Respiratory 16 Rate Blood Pressure 144/92 [Left] O2 Sat by Pulse 100 Oximetry - Reevaluation(s) Reevaluation #1: 03/27/19 04:36 Patient is alert and oriented 3 and is not in distress with normal vital signs. Lab test results were reviewed and are unremarkable except for hCG Quant of 881.3 and a positive hCG serum . Patient was treated for headache and nausea and vomiting in the ED. On reevaluation, patient's headache has resolved and her vital signs are stable. The patient is sent home on medications for nausea and vomiting and advised to take Tylenol as needed for fever and headac he. Patient advised to follow-up with her [facility] physician or primary care physician in 7-10 days for reevaluation or return to the ED immediately if her symptoms get worse. 03/27/19 04:37 ED Medical Decision Making - Lab Data Result diagrams: 03/27/19 02:17 03/27/19 02:17 - Medical Decision Making Patient is alert and oriented 3 and is not in distress with normal vital signs. Lab test results were reviewed and are unremarkable except for hCG Quant of 881.3 and a positive hCG serum . Patient was treated for headache and nausea and vomiting in the ED. On reevaluation, patient's headache has resolved and her vital signs are stable. The patient is sent home on medications for nausea and vomiting and advised to take Tylenol as needed for fever and headache. Patient advised to follow-up with her [facility] physician or primary care physician in 7-10 days for reevaluation or return to the ED immediately if her symptoms get worse. - Differential Diagnosis tension type headache; nausea and vomiting; incidental finding Critical care attestation.: If time is entered above; I have spent that time in minutes in the direct care of this critically ill patient, excluding procedure time. ED Disposition Clinical Impression: Nausea and vomiting during , at early stage Tension type headache Qualifiers: Headache chronicity pattern: acute headache Intractability: not intractable Qualified Code(s): G44.209 - Tension-type headache, unspecified, not intractable Disposition: DC-01 TO HOME OR SELFCARE Is pt being admited?: No Does the pt Need Aspirin: No Condition: Stable Instructions: Acute Headache (ED), (ED), Morning Sickness (ED), Acute Nausea and Vomiting (ED) Additional Instructions: Take medications with food, drink plenty of fluids and follow up with the [facility] physician for further care physician in 7-10 days for reevaluation. Take Tylenol as needed for pain. Return to the ED immediately if symptoms get worse. Prescriptions: Promethazine [Phenergan] 25 mg PO Q6HR PRN #30 tab PRN Reason: Nausea Referrals: MIREILLE KIRK MD [Primary Care Provider] - 3-5 Days Time of Disposition: 04:40 Print Language: MARSHALLESE
== END 2019-03-27 04:50 | disposition home or self-care (01) ==
LOC: ED 21:22
DX: O26.891 Other specified pregnancy related conditions, first trimester (principal); O21.8 Other vomiting complicating pregnancy; R11.0 Nausea; O16.1 Unspecified maternal hypertension, first trimester; G44.209 Tension-type headache, unspecified, not intractable; Z79.899 Other long term (current) drug therapy; Z3A.01 Less than 8 weeks gestation of pregnancy
CPT/HCPCS: 36415; 80053; 84702; 84703; 85025; 99283; Q0162

== ENCOUNTER 2019-04-10 19:49 | Emergency (ER) | payer MEDICAID ==
--- NOTE | 2019-04-10 19:59 | Emergency Department Report ---
Blank Doc - Documentation Documentation: 28 y o presents with pelvic cramping, was seen on11th positive test states she is having some vaginal spotting has not beeen to ob yet ua,labs
[2019-04-10 21:24] LABS: Bacteria,Urine 1+ /HPF (Negative); Bilirubin,Urine NEG (Negative); Blood,Urine NEG (Negative); Color,Urine Yellow (Yellow); Mucus,Urine FEW /HPF; Protein,Urine <15 mg/dL mg/dL (Negative); Urobilinogen,Urine < 2.0 mg/dL (<2.0)
[2019-04-11] MEDS ORDERED: BENADRYL PO ONE (01:53)
[2019-04-11] MEDS ORDERED: TYLENOL PO ONE (01:53)
[2019-04-11 02:36] LABS: Basophils # (Auto) 0.1 K/mm3 (0.0-0.1); Basophils % (Auto) 0.9 % (0.0-1.8); Eosinophils % (Auto) 0.1 % (0.0-4.3); Hemoglobin 12.1 gm/dl (10.1-14.3); Lymphocytes # (Auto) 1.7 K/mm3 (1.2-5.4); Lymphocytes % (Auto) 23.1 % (13.4-35.0); Mean Corpuscular HGB Conc 35 % (30-34); Mean Corpuscular Volume 83 fl (79-97); Monocytes # (Auto) 0.6 K/mm3 (0.0-0.8); Monocytes % (Auto) 8.4 % (0.0-7.3); Platelet Count 327 K/mm3 (140-440); Red Cell Distribution Width 15.5 % (13.2-15.2)
--- NOTE | 2019-04-11 02:52 | Emergency Department Report ---
ED HPI - General Chief complaint: Vaginal Bleeding Stated complaint: POSSIBLE MISCARRIAGE Time Seen by Provider: 04/10/19 19:55 Source: patient Mode of arrival: Ambulatory Limitations: No Limitations - History of Present Illness Initial comments: Patient is a 28-year-old -Tong[place] female who is A1 last menstrual period menstrual weeks presents with abdominal cramping and spotting spotting is intermittent and described as light pink, cramping symptoms rated at 3/10 there is no fever or chills am n/v only , pt denies concern for STI, no vaginal discharge MD Complaint: abdominal pain Onset/Timin -: days(s) Location: abdomen Radiation: LLQ, RLQ Severity: moderate Severity scale (0 -10): 3 Quality: cramping Consistency: intermittent Improves with: rest Worsens with: movement Associated symptoms: nausea/vomiting, vaginal bleeding (spotting pink intermittent ), abdominal pain. denies: vaginal discharge, dysuria, headache, vision changes, malaise, dysparuenia, rash, seizure, shortness of breath, syncope, weakness Vaginal bleeding: light :: Yes Number of weeks : 8 OB History - Current : no complications OB History - Previous Pregnancies: miscarriage (1) Last menstrual period: 01/28/19 Pre-chuyita care: none - Related Data : 5 Para: 3 Ab: 1 (Miscarriage ) Previous Rx's Medication Instructions Recorded Last Taken Type Methylergonovine [Methergine] 0.2 mg PO Q8HR #6 tablet 06/12/18 Unknown Rx Vit-Fe Fumar-FA [ 1 each PO QDAY #30 tablet 06/12/18 Unknown Rx Vitamin] Butalb/Acetaminophen/Caffeine 1 cap PO Q8HR PRN #30 cap 08/10/18 Unknown Rx [Fioricet 50-300-40 mg CAP] Ibuprofen [Motrin 600 MG tab] 600 mg PO Q6H #30 tablet 08/10/18 Unknown Rx Chlorhexidine Gluconate [Hibiclens] 10 ml TP BID #240 liquid 12/14/18 Unknown Rx Lidocaine Viscous 2% 5 ml MM Q3H PRN #120 udc 12/14/18 Unknown Rx Sulfamethoxazole/Trimethoprim 1 each PO BID #20 tablet 12/14/18 Unknown Rx [Bactrim Ds] Promethazine [Phenergan] 25 mg PO Q6HR PRN #30 tab 03/27/19 Unknown Rx Allergies Allergy/AdvReac Type Severity Reaction Status Date / Time No Known Allergies Allergy Verified 08/10/18 08:06 ED Review of Systems ROS: Stated complaint: POSSIBLE MISCARRIAGE Other details as noted in HPI Constitutional: denies: chills, fever Eyes: denies: eye pain, eye discharge, vision change ENT: denies: ear pain, throat pain Respiratory: denies: cough, shortness of breath, wheezing Cardiovascular: denies: chest pain, palpitations Endocrine: no symptoms reported Gastrointestinal: abdominal pain. denies: nausea, vomiting, diarrhea, constipation, hematemesis, melena, hematochezia Genitourinary: denies: urgency, dysuria, frequency, hematuria, discharge, abnormal menses, dyspareunia Musculoskeletal: denies: back pain, joint swelling, arthralgia, myalgia Skin: denies: rash, lesions Neurological: denies: headache, weakness, paresthesias Psychiatric: denies: anxiety, depression Hematological/Lymphatic: denies: easy bleeding, easy bruising ED Past Medical Hx - Past Medical History Previous Medical History?: Yes Hx Hypertension: Yes ( HTN) Hx Congestive Heart Failure: No Hx Diabetes: No Hx Asthma: No Hx COPD: No Additional medical history: MISCARRIAGE - Surgical History Past Surgical History?: Yes Additional Surgical History: x 2 - Social History Smoking Status: Never Smoker Substance Use Type: None - Medications Home Medications: Home Medications Medication Instructions Recorded Confirmed Last Taken Type Methylergonovine [Methergine] 0.2 mg PO Q8HR #6 tablet 06/12/18 Unknown Rx Vit-Fe Fumar-FA [ 1 each PO QDAY #30 tablet 06/12/18 Unknown Rx Vitamin] Butalb/Acetaminophen/Caffeine 1 cap PO Q8HR PRN #30 cap 08/10/18 Unknown Rx [Fioricet 50-300-40 mg CAP] Ibuprofen [Motrin 600 MG tab] 600 mg PO Q6H #30 tablet 08/10/18 Unknown Rx Chlorhexidine Gluconate [Hibiclens] 10 ml TP BID #240 liquid 12/14/18 Unknown Rx Lidocaine Viscous 2% 5 ml MM Q3H PRN #120 udc 12/14/18 Unknown Rx Sulfamethoxazole/Trimethoprim 1 each PO BID #20 tablet 12/14/18 Unknown Rx [Bactrim Ds] Promethazine [Phenergan] 25 mg PO Q6HR PRN #30 tab 03/27/19 Unknown Rx ED Physical Exam - General Limitations: No Limitations General appearance: alert, in no apparent distress - Head Head exam: Present: atraumatic, normocephalic - Eye Eye exam: Present: normal appearance, PERRL, EOMI Pupils: Present: normal accommodation - ENT ENT exam: Present: mucous membranes moist. Absent: normal orophraynx, TM's normal bilaterally, normal external ear exam - Neck Neck exam: Present: normal inspection, full ROM. Absent: tenderness, me ningismus, lymphadenopathy, thyromegaly - Respiratory Respiratory exam: Present: normal lung sounds bilaterally. Absent: respiratory distress, wheezes, stridor, chest wall tenderness - Cardiovascular Cardiovascular Exam: Present: regular rate, normal rhythm, normal heart sounds. Absent: systolic murmur, diastolic murmur, rubs, gallop - GI/Abdominal GI/Abdominal exam: Present: soft, normal bowel sounds. Absent: distended, tenderness, guarding, rebound, rigid, bruit, hernia - Rectal Rectal exam: Present: deferred - Extremities Exam Extremities exam: Present: normal inspection, full ROM, normal capillary refill. Absent: tenderness, pedal edema, joint swelling, calf tenderness - Back Exam Back exam: Present: normal inspection, full ROM. Absent: tenderness, CVA tenderness (R), CVA tenderness (L), muscle spasm, paraspinal tenderness, vertebral tenderness, rash noted - Neurological Exam Neurological exam: Present: alert ((), oriented X3, CN II-XII intact, normal gait, motor sensory deficit. Absent: reflexes normal - Psychiatric Psychiatric exam: Present: normal affect, normal mood - Skin Skin exam: Present: warm, dry, intact, normal color. Absent: rash ED Course Vital Signs 04/10/19 04/11/19 04/11/19 19:56 02:15 03:15 Temperature 98.2 F Pulse Rate 99 H Respiratory 16 16 16 Rate Blood Pressure 154/86 Blood Pressure [Left] O2 Sat by Pulse 99 Oximetry 04/11/19 03:35 Temperature 98 F Pulse Rate 78 Respiratory 15 Rate Blood Pressure Blood Pressure 128/95 [Left] O2 Sat by Pulse 100 Oximetry ED Medical Decision Making - Lab Data Result diagrams: 04/11/19 02:24 Labs 04/10/19 04/10/19 04/11/19 20:17 20:33 02:24 WBC 7.4 RBC 4.20 Hgb 12.1 Hct 35.0 MCV 83 MCH 29 MCHC 35 H RDW 15.5 H Plt Count 327 Lymph % (Auto) 23.1 Potter % (Auto) 8.4 H Eos % (Auto) 0.1 Baso % (Auto) 0.9 Lymph # 1.7 Potter # 0.6 Eos # 0.0 Baso # 0.1 Seg Neutrophils % 67.5 Seg Neutrophils # 5.0 HCG, Quant 31119 H Urine Color Yellow Urine Turbidity Clear Urine pH 6.0 Ur Specific [place] 1.011 Urine Protein <15 mg/dl Urine Glucose (UA) Neg Urine Ketones Neg Urine Blood Neg Urine Nitrite Neg Urine Bilirubin Neg Urine Urobilinogen < 2.0 Ur Leukocyte Esterase Neg Urine WBC (Auto) 2.0 Urine RBC (Auto) 4.0 U Epithel Cells (Auto) 4.0 Urine Bacteria (Auto) 1+ Urine Mucus Few Blood Type 04/11/19 02:24 WBC RBC Hgb Hct MCV MCH MCHC RDW Plt Count Lymph % (Auto) Potter % (Auto) Eos % (Auto) Baso % (Auto) Lymph # Potter # Eos # Baso # Seg Neutrophils % Seg Neutrophils # HCG, Quant Urine Color Urine Turbidity Urine pH Ur Specific [place] Urine Protein Urine Glucose (UA) Urine Ketones Urine Blood Urine Nitrite Urine Bilirubin Urine Urobilinogen Ur Leukocyte Esterase Urine WBC (Auto) Urine RBC (Auto) U Epithel Cells (Auto) Urine Bacteria (Auto) Urine Mucus Blood Type B POSITIVE - EKG Data When compared to previous EKG there are: no significant change, changes noted - Radiology Data Radiology results: report reviewed, image reviewed pt is a sfte kb philippe - Medical Decision Making pt adavises that she can no longer wait and signed out AMA , pt counsesl on risk of signing out AMA , has rememeber to meryl domínguez instruuy change Critical care attestation.: If time is entered above; I have spent that time in minutes in the direct care of this critically ill patient, excluding procedure time. ED Disposition Clinical Impression: Abdominal pain during intrauterine Disposition: ELOPED Is pt being admited?: No Does the pt Need Aspirin: No Condition: Undetermined Referrals: ALEXANDREA MICHELLE MD [Primary Care Provider] - 3-5 Days Forms: AMA Form, Work/School Release Form(ED)
[2019-04-11 04:18] VITALS: BP 128/95
== END 2019-04-11 03:45 | disposition left against medical advice (07) ==
LOC: ED 19:49
DX: O00.01 Abdominal pregnancy with intrauterine pregnancy (principal); O21.9 Vomiting of pregnancy, unspecified; O16.1 Unspecified maternal hypertension, first trimester; Z79.1 Long term (current) use of non-steroidal anti-inflammatories (NSAID); Z79.899 Other long term (current) drug therapy; Z3A.08 8 weeks gestation of pregnancy
CPT/HCPCS: 36415; 81001; 84702; 85025; 86900; 86901; 99283

== ENCOUNTER 2020-07-03 11:03 | Emergency (ER) | payer SELFPAY ==
[2020-07-03 11:10] VITALS: BP 163/108
[2020-07-03 13:01] LABS: Bilirubin,Urine NEG (Negative); Blood,Urine MOD (Negative); Color,Urine Straw (Yellow); Mucus,Urine FEW /HPF; Protein,Urine <15 mg/dL mg/dL (Negative); Urobilinogen,Urine < 2.0 mg/dL (<2.0)
--- NOTE | 2020-07-03 13:51 | Emergency Department Report ---
ED Female HPI - General Chief complaint: Urogenital-Female Stated complaint: MED REFILL/KIDNEY INFECTION Time Seen by Provider: 07/03/20 12:36 Source: patient Mode of arrival: Ambulatory Limitations: No Limitations - History of Present Illness Initial comments: 29-year-old -S[place] female presents to the emergency room for a week history of dysuria, urinary urgency and urinary frequency. Patient states that she was seen here earlier this week and was told she had a urinary tract infection eloped before she could get her discharge as she was trying to get her over ride. Patient denies any fever chills. Last menstrual period was 06/17/2020. She is 5 para 3. Last bowel movement was yesterday. Currently takes no medications on a daily basis and has no known drug allergies. MD Complaint: dysuria, pelvic pain Onset/Timin -: days(s) Location: suprapubic Severity: moderate Severity scale (0 -10): 6 Improves with: none Worsens with: urination Are you Now?: No Last Menstrual Period: 06/17/20 EDC: 03/24/21 Associated Symptoms: dysuria. denies: nausea/vomiting, fever/chills - Related Data Sexually active: Yes : 5 Para: 3 Previous Rx's Medication Instructions Recorded Last Taken Type Methylergonovine [Methergine] 0.2 mg PO Q8HR #6 tablet 06/12/18 Unknown Rx Vit-Fe Fumar-FA [ 1 each PO QDAY #30 tablet 06/12/18 Unknown Rx Vitamin] Butalb/Acetaminophen/Caffeine 1 cap PO Q8HR PRN #30 cap 08/10/18 Unknown Rx [Fioricet 50-300-40 mg CAP] Ibuprofen [Motrin 600 MG tab] 600 mg PO Q6H #30 tablet 08/10/18 Unknown Rx Chlorhexidine Gluconate [Hibiclens] 10 ml TP BID #240 liquid 12/14/18 Unknown Rx Lidocaine Viscous 2% 5 ml MM Q3H PRN #120 udc 12/14/18 Unknown Rx Sulfamethoxazole/Trimethoprim 1 each PO BID #20 tablet 12/14/18 Unknown Rx [Bactrim Ds] Promethazine [Phenergan] 25 mg PO Q6HR PRN #30 tab 03/27/19 Unknown Rx Acetaminophen/Codeine [Tylenol 1 tab PO Q6H PRN #10 tab 07/01/20 Unknown Rx /Codeine # 3 tab] Sulfamethoxazole/Trimethoprim 1 each PO BID 7 Days #14 tablet 07/01/20 Unknown Rx [Bactrim DS TAB] Nitrofurantoin [place]/M-Cryst 100 mg PO Q12HR 10 Days #20 capsule 07/03/20 Unknown Rx [Macrobid CAP] Allergies Allergy/AdvReac Type Severity Reaction Status Date / Time No Known Allergies Allergy Verified 07/01/20 11:21 ED Review of Systems ROS: Stated complaint: MED REFILL/KIDNEY INFECTION Other details as noted in HPI ED Past Medical Hx - Past Medical History Previous Medical History?: Yes Hx Hypertension: Yes ( HTN) Hx Congestive Heart Failure: No Hx Diabetes: No Hx Asthma: No Hx COPD: No Additional medical history: MISCARRIAGE - Surgical History Past Surgical History?: Yes Additional Surgical History: x 2 - Social History Smoking Status: Never Smoker Substance Use Type: None - Medications Home Medications: Home Medications Medication Instructions Recorded Confirmed Last Taken Type Methylergonovine [Methergine] 0.2 mg PO Q8HR #6 tablet 06/12/18 Unknown Rx Vit-Fe Fumar-FA [ 1 each PO QDAY #30 tablet 06/12/18 Unknown Rx Vitamin] Butalb/Acetaminophen/Caffeine 1 cap PO Q8HR PRN #30 cap 08/10/18 Unknown Rx [Fioricet 50-300-40 mg CAP] Ibuprofen [Motrin 600 MG tab] 600 mg PO Q6H #30 tablet 08/10/18 Unknown Rx Chlorhexidine Gluconate [Hibiclens] 10 ml TP BID #240 liquid 12/14/18 Unknown Rx Lidocaine Viscous 2% 5 ml MM Q3H PRN #120 udc 12/14/18 Unknown Rx Sulfamethoxazole/Trimethoprim 1 each PO BID #20 tablet 12/14/18 Unknown Rx [Bactrim Ds] Promethazine [Phenergan] 25 mg PO Q6HR PRN #30 tab 03/27/19 Unknown Rx Acetaminophen/Codeine [Tylenol 1 tab PO Q6H PRN #10 tab 07/01/20 Unknown Rx /Codeine # 3 tab] Sulfamethoxazole/Trimethoprim 1 each PO BID 7 Days #14 tablet 07/01/20 Unknown Rx [Bactrim DS TAB] Nitrofurantoin [place]/M-Cryst 100 mg PO Q12HR 10 Days #20 capsule 07/03/20 Unknown Rx [Macrobid CAP] ED Physical Exam - General Limitations: No Limitations General appearance: alert, in no apparent distress - Head Head exam: Present: atraumatic, normocephalic - Eye Eye exam: Present: normal appearance - ENT ENT exam: Present: normal exam - Neck Neck exam: Present: normal inspection, full ROM - Respiratory Respiratory exam: Present: normal lung sounds bilaterally - GI/Abdominal GI/Abdominal exam: Present: soft, tenderness (Suprapubic left). Absent: distended - Back Exam Back exam: Present: normal inspection, full ROM - Neurological Exam Neurological exam: Present: alert, oriented X3, normal gait - Psychiatric Psychiatric exam: Present: normal affect, normal mood - Skin Skin exam: Present: warm, dry, intact, normal color. Absent: rash ED Course Vital Signs 07/03/20 11:07 Temperature 98.5 F Pulse Rate 85 Respiratory 20 Rate Blood Pressure 163/108 [Right] O2 Sat by Pulse 100 Oximetry ED Medical Decision Making - Medical Decision Making 29-year-old -Sammar[place] female presents to the emergency room for a week history of dysuria, urinary urgency and urinary frequency. Patient states that she was seen here earlier this week and was told she had a urinary tract infection eloped before she could get her discharge as she was trying to get her over ride. Patient denies any fever chills. Last menstrual period was 06/17/2020. She is 5 para 3. Last bowel movement was yesterday. Currently takes no medications on a daily basis and has no known drug allergies. Patient be treated for urinary tract infection with Macrobid 100 mg p.o. twice daily for 10 days. Patient is to follow-up with her primary care provider. Critical care attestation.: If time is entered above; I have spent that time in minutes in the direct care of this critically ill patient, excluding procedure time. ED Disposition Clinical Impression: UTI (urinary tract infection) Disposition: DC- TO HOME OR SELFCARE Is pt being admited?: No Does the pt Need Aspirin: No Condition: Stable Instructions: Dysuria (ED), Urinary Tract Infection in Women (ED) Additional Instructions: Complete antibiotics as prescribed. Increase your fluid intake advance diet as tolerated. Follow-up with [facility]. Prescriptions: Nitrofurantoin [place]/M-Cryst [Macrobid CAP] 100 mg PO Q12HR 10 Days #20 capsule Referrals: PRIMARY CARE, [Primary Care Provider] - 3-5 Days [facility] [Provider Group] - 3-5 Days Forms: Work/School Release Form(ED)
== END 2020-07-03 14:37 | disposition home or self-care (01) ==
LOC: ED 11:03
DX: N39.0 Urinary tract infection, site not specified (principal); I10 Essential (primary) hypertension; Z79.899 Other long term (current) drug therapy
CPT/HCPCS: 36415; 81001; 84702; 87086; 99283